=== PATIENT | female | born 1990 | race Two or more races ===

== ENCOUNTER 2018-09-19 13:15 | Emergency (ER) | payer OTHER ==
[~2018-09-19] VITALS: Ht 154.9 cm; Wt 68.0 kg
[2018-09-19 13:35] VITALS: Ht 154.9 cm; Wt 68.0 kg
[2018-09-19 14:24] LABS: PLATELET COUNT 166 x10^3mcL (130-400)
[2018-09-19 14:25] LABS: CALCIUM 8.5 mg/dL (8.5-10.1); CARBON DIOXIDE 28.9 mmol/L (21-32); CHLORIDE SERUM 100 mmol/L (98-107); CREATININE SERUM 0.8 mg/dL (0.6-1.0); GFR1 > 60 mL/min; GLUCOSE SERUM 105 mg/dL (74-106); POTASSIUM SERUM 3.3 mmol/L (3.5-5.1); SODIUM SERUM 137 mmol/L (136-145)
[2018-09-19 14:29] LABS: ALKALINE PHOSPHATASE 100 U/L (46-116); ALT/SGPT 27 U/L (14-59); AST/SGOT 21 U/L (15-37); BILIRUBIN TOTAL 0.6 mg/dL (0.20-1.00); MAGNESIUM 1.7 mg/dL (1.8-2.4); TOTAL PROTEIN, SERUM 6.7 g/dL (6.4-8.2)
[2018-09-19 14:30] LABS: ALBUMIN 2.7 g/dL (3.4-5.0)
[2018-09-19 14:35] LABS: BASOPHIL % 0 % (0-2); RED CELL DISTRIBUTION WIDTH 14.8 % (11.5-14.5)
[2018-09-19 15:29] LABS: microscopic required? YES; urine erythrocyte 2+ (NEGATIVE)
[2018-09-19 17:07] VITALS: BP 91/62
== END 2018-09-19 17:13 | disposition home or self-care (01) ==
LOC: ED 13:15
PROVIDERS: Emergency Medicine
DX: R65.10 Systemic inflammatory response syndrome (SIRS) of non-infectious origin without acute organ dysfunction (principal); N12 Tubulo-interstitial nephritis, not specified as acute or chronic
CPT/HCPCS: 87804; J0696; J7030; Q0092